=== PATIENT | female | born 1990 | race Caucasian/White ===

== ENCOUNTER 2020-05-02 21:59 | Outpatient (CLI) | payer OTHER | END 2020-05-02 22:00 | disposition critical access hospital (66) | LOC: EMS 21:59 | PROVIDERS: ATTEND Emergency Medicine | DX: L50.9 Urticaria, unspecified (principal); R22.1 Localized swelling, mass and lump, neck; R22.0 Localized swelling, mass and lump, head | CPT/HCPCS: A0425; A0427 ==

== ENCOUNTER 2020-05-02 22:16 | Emergency (ER) | payer OTHER ==
--- NOTE | 2020-05-02 22:25 | ED Physician Documentation ---
History of Present Illness - Stated complaint Stated Complaint: ALLERGIC REACTION - History obtained from History obtained from: Patient, EMS - History of Present Illness Timing: Today Pain level now: 0 Improved by: improved after multiple interventions by EMS (see below) Worsened by: no apparent exacerbating factors; inciting factor might have been related to what she recently ate (see below) - Additonal information Additional information: tonight, patient ate some soup and ice cream. Approximately 5 minutes after this, she developed generalized pruritic hives, dyspnea, sensation of tongue and throat swelling and called 911. She was given 0.3mg epinephrine IM by medics with mild improvement but then a second dose (0.3mg IM) due to continued c/o throat/tongue swelling and reported dyspnea. IV established and she was given 50mg IV diphenhydramine, followed by 125 mg solu-medrol. Her symptoms continued to improve and her vital signs were stable the entire time (including upper 90s- 100% pulse ox on room air, normotensive-hypertensive readings). She was given a third dose of 0.3mg IM epinephrine due to continued c/o sensation of tongue and throat swelling and dyspnea. Review of Systems Constitutional: denies: Fever, Chills, Sweats Throat: reports: Other (sensation of throat and tongue swelling) Cardiac: reports: Reviewed and negative Respiratory: reports: Dyspnea. denies: Cough, Wheezing GI: reports: Reviewed and negative Skin: reports: Rash Musculoskeletal: reports: Reviewed and negative Neurologic: reports: Reviewed and negative PD PAST MEDICAL HISTORY - Past Medical History Past Medical History: No - Present Medications Home Medications: Ambulatory Orders Medication Instructions Recorded Confirmed EPINEPHrine [Epinephrine] 0.3 mg IJ ONCE #2 05/03/20 predniSONE [Deltasone] 40 mg PO DAILY 4 Days #8 tab 05/03/20 - Allergies Allergies/Adverse Reactions: Allergies Allergy/AdvReac Type Severity Reaction Status Date / Time Fish Containing Products Allergy Anaphylaxis Verified 05/02/20 22:28 iodine Allergy Anaphylaxis Verified 05/02/20 22:28 shellfish derived Allergy Anaphylaxis Verified 05/02/20 22:28 - Living Situation Living Arrangement: reports: At home - Social History Does the pt smoke?: No PD ED PE NORMAL - Vitals Vital signs reviewed: Yes - General General: Alert and oriented X 3, No acute distress, Well developed/nourished - HEENT HEENT: Moist mucous membranes, Pharynx benign, Other (airway widely patent; no obvious perioral nor intraoral swelling) - Neck Neck: Supple, no meningeal sign - Cardiac Cardiac: RRR, No murmur - Respiratory Respiratory: No respiratory distress, Clear bilaterally - Abdomen Abdomen: Soft, Non tender - Derm Derm: Normal color, Warm and dry - Extremities Extremities: No edema Results - Vitals Vitals: Vital Signs - 24 hr 05/02/20 05/03/20 22:17 00:46 Temperature 36.6 C Heart Rate 98 100 Respiratory 28 H 18 Rate Blood Pressure 131/88 H 128/78 O2 Saturation 100 100 Oxygen O2 Source Room air - Labs Labs: Laboratory Tests 05/02/20 05/02/20 22:32 22:32 WBC 12.8 H RBC 4.44 Hgb 13.8 Hct 39.6 MCV 89.2 MCH 31.1 H MCHC 34.8 RDW 12.3 Plt Count 273 MPV 9.9 Neut # (Auto) 5.7 Lymph # (Auto) 5.9 H [place] # (Auto) 1.0 Eos # (Auto) 0.2 Baso # (Auto) 0.0 Absolute Nucleated RBC 0.00 Nucleated RBC % 0.0 Manual Slide Review Indicated WBC Morphology NORMAL APPEARANCE Platelet Estimate NORMAL (130-450,000) Platelet Morphology NORMAL APPEARANCE RBC Morph Micro Appear NORMAL APPEARANCE Sodium 138 Potassium 2.6 L Chloride 102 Carbon Dioxide 20 L Anion Gap 16.0 H BUN 13 Creatinine 0.6 Estimated GFR (MDRD) 118 Glucose 154 H Calcium 9.6 - Rads (name of study) chest xray Radiology: Prelim report reviewed, See rad report PD MEDICAL DECISION MAKING - ED course Complexity details: reviewed results, re-evaluated patient, considered differential, d/w patient ED course: patient had significant improvement en route with the medications given and her symptoms did not recur/worsen during ED observation. She had normal/stable vital signs including normal blood pressures and 100% pulse ox on room air. She was in NAD and asymptomatic on reevaluation prior to d/c. Departure - Departure Disposition: 01 Home, Self Care Clinical Impression: Anaphylaxis Condition: Good Instructions: ED Anaphylaxis General Follow-Up: DUSTY Salgadoamelia Talbot [Provider Group] Prescriptions: predniSONE [Deltasone] 40 mg PO DAILY 4 Days #8 tab EPINEPHrine [Epinephrine] 0.3 mg IJ ONCE #2 Comments: I have prescribed a new epi-pen (epinephrine in an auto-injector). Use it if you develop signs/symptoms of anaphylaxis and call 911, even if you feel improved. I have prescribed two of these epi-pens so that you can keep one at home and one at work or in your car. Discharge Date/Time: 05/03/20 00:46
[2020-05-02] MEDS ORDERED: FAMOTIDINE 20 MG/2 ML VIAL IVP STA (22:26)
[2020-05-02 22:41] LABS: BASOPHILS % (AUTO) 0.3 %; EOSINOPHILS # (AUTO) 0.2 10^3/uL (0.0-0.7); EOSINOPHILS % (AUTO) 1.5 %; HGB - HEMOGLOBIN 13.8 g/dL (12.0-16.0); LYMPHOCYTES # (AUTO) 5.9 10^3/uL (1.5-3.5); MEAN CORPUSCULAR HEMOGLOBIN 31.1 pg (27.0-31.0); MEAN CORPUSCULAR HGB CONC 34.8 g/dL (32.0-36.0); MEAN CORPUSCULAR VOLUME 89.2 fL (81.0-99.0); MEAN PLATELET VOLUME 9.9 fL (7.9-10.8); MONOCYTES % (AUTO) 7.4 %; NEUTROPHILS # (AUTO) 5.7 10^3/uL (1.5-6.6); NEUTROPHILS % (AUTO) 44.6 %; PLT - PLATELET COUNT 273 10^3/uL (130-450); RED BLOOD COUNT 4.44 10^6/uL (4.20-5.40); RED CELL DISTRIBUTION WIDTH 12.3 % (12.0-15.0); WHITE BLOOD COUNT 12.8 x10^3/uL (4.8-10.8)
[2020-05-02 22:58] LABS: RBC MORPHOLOGY (MULTIPLE) NORMAL APPEARANCE (NORMAL)
[2020-05-02 22:59] LABS: CALCIUM 9.6 mg/dL (8.5-10.3); CREATININE 0.6 mg/dL (0.4-1.0); PLATELET ESTIMATE, MANUAL NORMAL (130-450,000) (NORMAL); PLATELET MORPHOLOGY NORMAL APPEARANCE (NORMAL)
[2020-05-03 00:48] VITALS: BP 128/78
--- NOTE | 2020-05-03 09:04 | XRAY Report ---
PROCEDURE: Chest 2 View X-Ray INDICATIONS: dyspnea TECHNIQUE: 2 view(s) of the chest. COMPARISON: None. FINDINGS: Surgical changes and devices: None. Lungs and pleura: No pleural effusions or pneumothorax. Small patchy ill-defined opacity of the righ t lower lobe. No focal consolidation. Left lung appears clear. Mediastinum: Mediastinal contours are normal. Heart size is normal. Bones and chest wall: No suspicious bony abnormalities. Soft tissues appear unremarkable. IMPRESSION: Small patchy right lower lobe airspace opacity possibly representing early developing airspace diseas e/pneumonia. No significant discrepancy with initial interpretation by overnight radiologist. Reviewed by: Christiano Bray MD on 05/03/2020 9:02 AM [facility] Approved by: Christiano Bray MD on 05/03/2020 9:02 AM [facility] Station ID: [id number]
== END 2020-05-03 00:46 | disposition home or self-care (01) ==
LOC: ED 22:16
DX: T78.2XXA Anaphylactic shock, unspecified, initial encounter (principal)
CPT/HCPCS: 36415; 80048; 85025; 96374; 99284

== ENCOUNTER 2022-09-15 15:59 | Emergency (ER) | payer OTHER ==
[2022-09-15 16:09] VITALS: BP 124/70
[2022-09-15 16:16] LABS: BILIRUBIN,URINE NEGATIVE (NEGATIVE); GLUCOSE, URINE (UA) NEGATIVE (NEGATIVE); KETONES,URINE (UA) NEGATIVE (NEGATIVE); LEUKOCYTE ESTERASE, URINE SMALL (NEGATIVE); NITRITE,URINE NEGATIVE (NEGATIVE); OCCULT BLOOD,URINE SMALL (NEGATIVE); PROTEIN,URINE NEGATIVE (NEGATIVE); UROBILINOGEN,URINE 0.2 (NORMAL) E.U./dL (NORMAL)
--- NOTE | 2022-09-15 16:21 | ED Physician Documentation ---
History of Present Illness - Stated complaint Stated Complaint: FEMALE - Chief complaint Chief Complaint: General - Additonal information Additional information: 32-year-old female presents emergency department for evaluation of dysuria, urgency and frequency that began yesterday. She is also concerned about a rash that she developed on her mons about a week ago. This followed shaving with a used razor. She describes the rash as pruritic. Nonpainful. Nonvesicular. She reports that she is prone to yeast infections. Review of Systems GI: reports: Reviewed and negative : reports: Dysuria, Frequency Skin: reports: Rash Musculoskeletal: reports: Reviewed and negative PD PAST MEDICAL HISTORY - Past Medical History Cardiovascular: None Respiratory: None Neuro: None Endocrine/Autoimmune: None GI: None VEHICLE TECHNICIAN: None : None HEENT: None Psych: None Musculoskeletal: None Derm: None - Past Surgical History Past Surgical History: Yes Ortho: Other - Present Medications Home Medications: Ambulatory Orders Medication Instructions Recorded Confirmed EPINEPHrine [Epinephrine] 0.3 mg IJ ONCE #2 05/03/20 09/15/22 Fluconazole [Diflucan] 1 tablet PO ONCE 2 Days #2 tablet 09/15/22 Miconazole Nitrate [Dermafungal] 106 gm TP DAILY #106 gm 09/15/22 cephALEXin [Keflex] 500 mg PO BID #14 cap 09/15/22 - Allergies Allergies/Adverse Reactions: Allergies Allergy/AdvReac Type Severity Reaction Status Date / Time Fish Containing Products Allergy Anaphylaxis Verified 10/14/21 23:22 iodine Allergy Anaphylaxis Verified 10/14/21 23:22 shellfish derived Allergy Anaphylaxis Verified 10/14/21 23:22 - Social History Does the pt smoke?: No Smoking Status: Never smoker Does the pt drink ETOH?: Yes Does the pt have substance abuse?: No - Immunizations Immunizations are current?: Yes - POLST Patient has POLST: No PD ED PE NORMAL - General General: Alert and oriented X 3, No acute distress - Cardiac Cardiac: RRR, No murmur - Respiratory Respiratory: Clear bilaterally - Abdomen Abdomen: Normal bowel sounds, Soft, Non tender, Non distended - Female Female : Escalator Mechanic present, Other (Well demarcated annular scaling rash on the mons with centralized clearing. No fluctuance or tenderness noted. Nonvesicular.) Results - Vitals Vitals: Vital Signs - 24 hr 09/15/22 16:01 Temperature 36.4 C L Heart Rate 69 Respiratory 16 Rate Blood Pressure 124/70 O2 Saturation 99 Oxygen O2 Source Room air PD Medical Decision Making - ED course Complexity details: reviewed results, d/w patient ED course: 32-year-old female presents emergency department for 24 hours of dysuria urgency and frequency. Symptoms are consistent with urinary tract infection. Urinalysis today AIs consistent with acute cystitis for this prescription for Keflex will be sent to the pharmacy. Clinically the patient has no secondary findings or exam findings to suggest a sending infection/pyelonephritis. Patient is also reporting a rash that has been on her mons region for about a week after using a razor. It is a pruritic well demarcated annular rash with centralized clearing most resembling a tinea or fungal infection. She reports she has had history of yeast infections in the past. Clinically I am suspicious for tinea cruris. For this I will prescribe fluconazole tablet 1 taken now and an additional in 72 hours time. I am also making the recommendation for the patient to apply miconazole nitrate cream to this rash every day for the next 2 to 3 weeks. She is advised to avoid shaving until the rash fully clears. Departure - Departure Disposition: Home, Self Care Clinical Impression: Tinea cruris Acute cystitis Qualifiers: Hematuria presence: without hematuria Qualified Code(s): N30.00 - Acute cystitis without hematuria Condition: Stable Record reviewed to determine appropriate education?: Yes Instructions: ED Tinea Cruris General, Miconazole skin cream Prescriptions: Miconazole Nitrate [Dermafungal] 106 gm TP DAILY #106 gm Fluconazole [Diflucan] 1 tablet PO ONCE 2 Days #2 tablet cephALEXin [Keflex] 500 mg PO BID #14 cap Comments: As discussed at the bedside you do have a urinary tract infection. For this we will start you on Keflex which she will take twice daily for the next week. The rash in your mons area is a fungal infection called tinea cruris. I would like you to take the fluconazole today and then again in 3 days but the more important treatment is applying the miconazole nitrate cream to this region every day for at least 3 weeks. You will need to continue to apply it for at least 1 week after the rash fully dissipates. Return to the ER if you are having new or worsening symptoms
[2022-09-15 16:22] LABS: CLARITY,URINE HAZY (CLEAR); HCG UR QUAL NEGATIVE
[2022-09-15 16:31] LABS: BACTERIA,URINE Few /HPF (None Seen); RBC,URINE 0-5 /HPF (0-5); SQUAMOUS EPITHELIAL CELL,UR FEW Squamous (<= Few)
== END 2022-09-15 16:58 | disposition home or self-care (01) ==
LOC: ED 15:59
DX: B35.6 Tinea cruris (principal); N30.00 Acute cystitis without hematuria
CPT/HCPCS: 81001; 81003; 81025; 87086; 99283

== ENCOUNTER 2022-12-20 15:51 | Outpatient (CLI) | payer OTHER ==
--- NOTE | 2022-12-21 12:07 | MRI Report ---
PROCEDURE: WRIST W/WO - LT INDICATIONS: GANGLION CONTRAST: CLARISCAN 16.8 ML TECHNIQUE: Noncontrast coronal proton density fast spin echo and T2 fast spin echo with fat saturation; coronal 3-D gradient echo, axial T1 spin echo and T2 fast spin echo with fat saturation, axial T1 spin echo w ith fat saturation, sagittal T1 spin echo through the wrist. Post-contrast axial, coronal, and sagit darrius T1 spin echo with fat saturation through the wrist. COMPARISON: None. FINDINGS: Image quality: Excellent. Bones and cartilage: No suspicious osseous enhancement. The carpal bones are normally aligned. No bone marrow contusions or fractures. No evidence for avascular necrosis. Minimal degenerative spurr ing of the base of the first metacarpal. Carpal ligaments: The scapholunate and lunotriquetral ligaments appear intact. On sagittal images, the pisohamate ligament appears intact. Triangular fibrocartilage complex: The triangular fibrocartilage appears intact. Tendons and soft tissues: No suspicious soft tissue enhancement. The carpal tunnel structures appea r normal, including the median nerve. The ulnar nerve appears normal within Guyon's canal. Mild exte nsor carpi ulnaris tendinosis. The remaining extensor tendon compartments demonstrate normal morpholo gy, without pathologic tendon sheath fluid. A definite cyst is seen at the volar radial aspect of the radiocarpal joint measuring 18 x 9 x 13 mm. Postcontrast images demonstrate a thin peripheral rim of enhancement without solid enhancing components. No solid soft tissue mass is seen. IMPRESSION: 1.Ganglion cyst adjacent to the volar radial aspect of the radiocarpal joint measures up to 18 mm. 2.Mild extensor carpi ulnaris tendinosis. Reviewed by: Geoffrey Gilman MD on 12/21/2022 12:06 PM PDT Approved by: Geoffrey Gilman MD on 12/21/2022 12:06 PM PDT Station ID: [id number]
== END 2022-12-20 15:52 | disposition home or self-care (01) ==
LOC: DI 15:51
DX: M67.432 Ganglion, left wrist (principal); M67.932 Unspecified disorder of synovium and tendon, left forearm
CPT/HCPCS: 73223; A9575

== ENCOUNTER 2023-01-26 12:15 | Outpatient (CLI) | payer OTHER | END 2023-01-26 12:30 | disposition home or self-care (01) | LOC: LAB.N 12:15 | PROVIDERS: ATTEND Family Medicine | DX: N39.0 Urinary tract infection, site not specified (principal) | CPT/HCPCS: 87086 ==

== ENCOUNTER 2023-02-02 08:00 | Outpatient (CLI) | payer OTHER ==
[2023-02-02 22:26] LABS: BACTERIAL VAGINOSIS DNA NEGATIVE (NEGATIVE); CANDIDA GLABRATA DNA NEGATIVE (NEGATIVE); CANDIDA GROUP DNA NEGATIVE (NEGATIVE); CANDIDA KRUSEI DNA NEGATIVE (NEGATIVE); TRICHOMONAS VAGINALIS DNA NEGATIVE (NEGATIVE)
== END 2023-02-02 23:59 | disposition home or self-care (01) ==
LOC: LAB.N 08:00
PROVIDERS: ATTEND Physician Assistant Medical
DX: L29.8 Other pruritus (principal)
CPT/HCPCS: 81514

== ENCOUNTER 2023-02-08 19:12 | Outpatient (CLI) | payer OTHER ==
--- NOTE | 2023-02-10 17:37 | Ultrasound Report ---
PROCEDURE: Pelvic w/Transvaginal INDICATIONS: OVARIAN CYST TECHNIQUE: Real-time scanning was performed of the pelvic organs, with image documentation. Additional endovagi nal scanning was necessary due to incomplete visualization of the adnexal and endometrial structures by transabdominal scanning. COMPARISON: None. FINDINGS: Uterus: Uterus is anteverted and normal in size at 6.9 x 3.3 x 4.4 cm. The myometrium is homogeneou s. The endometrium measures 6.6 mm in combined thickness. Ovaries: The right ovary measures 3.6 x 1.9 x 2.9 cm, with a calculated ovarian volume of 10.4 cc. The left ovary measures 4.2 x 2.5 x 3.1 cm, with a calculated ovarian volume of 16.3 cc. The ovaries have a normal sonographic appearance. Follicular cysts are present within the bilateral ovaries. Les s than 12 follicles can be seen in each ovary. No adnexal masses are seen. No cystic lesions measuri ng greater than 3 cm. Other: No pathologic free abdominal or pelvic fluid. IMPRESSION: Unremarkable pelvic ultrasound. Reviewed by: Starr Mcdowell MD on 02/10/2023 5:35 PM PST Approved by: Starr Mcdowell MD on 02/10/2023 5:35 PM PST Station ID: [id number]
== END 2023-02-08 19:13 | disposition home or self-care (01) ==
LOC: DI 19:12
PROVIDERS: ATTEND Physician Assistant Medical
DX: Z87.42 Personal history of other diseases of the female genital tract (principal)

== ENCOUNTER 2023-08-14 11:02 | Emergency (ER) | payer OTHER ==
--- NOTE | 2023-08-14 11:29 | ED Physician Documentation ---
PD HPI DYSPNEA - Stated complaint Stated Complaint: ANXIETY - Additional information Additional information: 32-year-old female with no pertinent past medical history presents emergency department for sudden onset shortness of breath. Patient says that her has been experiencing upper respiratory infection symptoms now for about the last week she started to feel ill and weak yesterday today she went to the clinic to go get evaluated because she is starting to have some chills, flushing, generalized malaise on her way to the clinic she started to experience sudden onset shortness of breath and episode of chest pain which caused her to collapse she started become tearful she called 911 for further evaluation. She says that she is having hard time differentiate the symptoms between possible anxiety versus panic attack or if there is something else going on. She also reports that she just recently started taking . PD PAST MEDICAL HISTORY - Past Medical History Cardiovascular: None Respiratory: None Neuro: None Endocrine/Autoimmune: None GI: None MISSION COORDINATOR: None : None HEENT: None Psych: None Musculoskeletal: None Derm: None - Past Surgical History Past Surgical History: Yes Ortho: Other - Present Medications Home Medications: Ambulatory Orders Medication Instructions Recorded Confirmed EPINEPHrine [Epinephrine] 0.3 mg IJ ONCE #2 05/03/20 09/15/22 Fluconazole [Diflucan] 1 tablet PO ONCE 2 Days #2 tablet 09/15/22 Miconazole Nitrate [Dermafungal] 106 gm TP DAILY #106 gm 09/15/22 cephALEXin [Keflex] 500 mg PO BID #14 cap 09/15/22 Ondansetron Odt [Zofran Odt] 4 mg TL Q6H PRN #10 tablet 08/14/23 hydrOXYzine PAMOATE [Vistaril] 25 mg PO Q6H PRN #20 cap 08/14/23 - Allergies Allergies/Adverse Reactions: Allergies Allergy/AdvReac Type Severity Reaction Status Date / Time Fish Containing Products Allergy Anaphylaxis Verified 08/14/23 11:28 iodine Allergy Anaphylaxis Verified 08/14/23 11:28 shellfish derived Allergy Anaphylaxis Verified 08/14/23 11:28 - Social History Does the pt smoke?: No Smoking Status: Never smoker Does the pt drink ETOH?: Yes Does the pt have substance abuse?: No - Immunizations Immunizations are current?: Yes - POLST Patient has POLST: No PD ED PE NORMAL - Vitals Vital signs reviewed: Yes - General General: Alert and oriented X 3, No acute distress, Well developed/nourished - HEENT HEENT: Atraumatic, PERRL - Neck Neck: No JVD - Cardiac Cardiac: RRR, No murmur, No gallop, Strong equal pulses - Respiratory Respiratory: No respiratory distress, Clear bilaterally - Abdomen Abdomen: Normal bowel sounds, Soft, Non tender, Non distended, No organomegaly Results - Vitals Vitals: Vital Signs - 24 hr 08/14/23 08/14/23 08/14/23 11:21 12:09 12:46 Temperature 36.8 C 36.3 C L Heart Rate 74 82 65 Respiratory 15 20 18 Rate Blood Pressure 149/92 H 130/74 129/83 H O2 Saturation 100 100 100 Oxygen O2 Source Room air - EKG (time done) 1151 EKG releavant findings:: EKG personally interpreted by author of this note. Relevant findings are: Rate: Rate (enter#) (69) Rhythm: NSR [place]: Normal Intervals: Normal [place] QRS: Normal Ischemia: Normal ST segments Computer interpretation: Agree with computer - Labs Labs: Laboratory Tests 08/14/23 08/14/23 08/14/23 11:17 11:37 11:37 WBC 7.7 RBC 4.29 Hgb 13.2 Hct 38.0 MCV 88.6 MCH 30.8 MCHC 34.7 RDW 12.4 Plt Count 245 MPV 9.7 Neut # (Auto) 5.0 Lymph # (Auto) 2.1 [place] # (Auto) 0.5 Eos # (Auto) 0.1 Baso # (Auto) 0.0 Absolute Nucleated RBC 0.00 Nucleated RBC % 0.0 Sodium 136 Potassium 3.8 Chloride 106 Carbon Dioxide 22 Anion Gap 8.0 BUN 11 Creatinine 0.7 Estimated GFR (MDRD) 97 Glucose 115 H Calcium 9.6 Magnesium 1.7 Total Bilirubin 0.5 AST 15 ALT 13 Alkaline Phosphatase 43 Troponin I High Sens Total Protein 6.6 Albumin 4.3 Globulin 2.3 Albumin/Globulin Ratio 1.9 Lipase 13 Serum HCG, Qual NEGATIVE Nasal Adenovirus (PCR) Nasal B. parapertussis DNA (PCR) Nasal Coronavir 229E PCR Nasal Coronavir HKU1 PCR Nasal Coronavir NL63 PCR Nasal Coronavir OC43 PCR Nasal Enterovir/Rhinovir PCR Nasal Influenza B PCR Nasal Influenza A PCR Nasal Parainfluen 1 PCR Nasal Parainfluen 2 PCR Nasal Parainfluen 3 PCR Nasal Parainfluen 4 PCR Nasal RSV (PCR) Nasal B.pertussis DNA PCR Nasal C.pneumoniae (PCR) Hever Human Metapneumo PCR Nasal M.pneumoniae (PCR) Nasal SARS-CoV-2 (PCR) 08/14/23 08/14/23 11:37 12:21 WBC RBC Hgb Hct MCV MCH MCHC RDW Plt Count MPV Neut # (Auto) Lymph # (Auto) [place] # (Auto) Eos # (Auto) Baso # (Auto) Absolute Nucleated RBC Nucleated RBC % Sodium Potassium Chloride Carbon Dioxide Anion Gap BUN Creatinine Estimated GFR (MDRD) Glucose Calcium Magnesium Total Bilirubin AST ALT Alkaline Phosphatase Troponin I High Sens < 2.3 L Total Protein Albumin Globulin Albumin/Globulin Ratio Lipase Serum HCG, Qual Nasal Adenovirus (PCR) NOT DETECTED Nasal B. parapertussis DNA (PCR) NOT DETECTED Nasal Coronavir 229E PCR NOT DETECTED Nasal Coronavir HKU1 PCR NOT DETECTED Nasal Coronavir NL63 PCR NOT DETECTED Nasal Coronavir OC43 PCR NOT DETECTED Nasal Enterovir/Rhinovir PCR NOT DETECTED Nasal Influenza B PCR NOT DETECTED Nasal Influenza A PCR NOT DETECTED Nasal Parainfluen 1 PCR NOT DETECTED Nasal Parainfluen 2 PCR NOT DETECTED Nasal Parainfluen 3 PCR NOT DETECTED Nasal Parainfluen 4 PCR NOT DETECTED Nasal RSV (PCR) NOT DETECTED Nasal B.pertussis DNA PCR NOT DETECTED Nasal C.pneumoniae (PCR) NOT DETECTED [place] Human Metapneumo PCR NOT DETECTED Nasal M.pneumoniae (PCR) NOT DETECTED Nasal SARS-CoV-2 (PCR) NOT DETECTED PD Medical Decision Making - ED course ED course: 32-year-old female presents emergency department for episode of shortness of breath that has now fully resolved. Patient says that she has been experiencing an extreme amount of anxiety lately a lot of at home and at work stressors she went into the walk-in clinic to get evaluated but because of her symptoms she ended up calling 911 because she felt like she was having a hard time with them. Now her shortness of breath has now fully resolved. She says that this feels very similar to panic attacks that she has had in the past. Very unlikely that this is ACS related troponins are negative normal EKG. Respiratory swab was complete for further evaluation as patient said that she is feeling generalized malaise and unwell this is also found to be negative. She is not she has no other electrolyte abnormalities no anemia no leukocytosis. Patient said that she felt significant improvement in symptoms after hydroxyzine and Zofran these medications were sent to her preferred pharmacy to help with her lingering nausea that she was experiencing as well as hydroxyzine to help with her anxiety. Patient has a therapist she denies any homicidal suicidal ideation believe any further workup is indicated she is safe for discharge at this time her will be driving her home. Departure - Departure Disposition: , Self Care Clinical Impression: Anxiety Instructions: ED Panic Attack Prescriptions: hydrOXYzine PAMOATE [Vistaril] 25 mg PO Q6H PRN #20 cap PRN Reason: Anxiety Ondansetron Odt [Zofran Odt] 4 mg TL Q6H PRN #10 tablet PRN Reason: Nausea / Vomiting Comments: Thank you for trusting us with your care. I believe that you are experiencing an anxiety attack we do have a respiratory swab pending we will call you with what the results are. I sent a prescription of Zofran and hydroxyzine to help with your nausea and anxiety at home. Please come back to the ER if you are noticing any worsening chest pain or other worsening emergency symptoms. Wishing a speedy recovery. Forms: PCP List Discharge Date/Time: 08/14/23 12:46
[2023-08-14 11:31] VITALS: O2SAT 100
[2023-08-14 11:52] LABS: BASOPHILS % (AUTO) 0.4 %; EOSINOPHILS # (AUTO) 0.1 10^3/uL (0.0-0.7); EOSINOPHILS % (AUTO) 0.8 %; HGB - HEMOGLOBIN 13.2 g/dL (12.0-16.0); LYMPHOCYTES # (AUTO) 2.1 10^3/uL (1.5-3.5); LYMPHOCYTES % (AUTO) 26.8 %; MEAN CORPUSCULAR HEMOGLOBIN 30.8 pg (27.0-31.0); MEAN CORPUSCULAR HGB CONC 34.7 g/dL (32.0-36.0); MEAN CORPUSCULAR VOLUME 88.6 fL (81.0-99.0); MEAN PLATELET VOLUME 9.7 fL (7.9-10.8); MONOCYTES # (AUTO) 0.5 10^3/uL (0.0-1.0); NEUTROPHILS % (AUTO) 64.7 %; PLT - PLATELET COUNT 245 10^3/uL (130-450); RED BLOOD COUNT 4.29 10^6/uL (4.20-5.40); RED CELL DISTRIBUTION WIDTH 12.4 % (12.0-15.0); WHITE BLOOD COUNT 7.7 x10^3/uL (4.8-10.8)
[2023-08-14] MEDS: hydrOXYzine PAMOATE 25 MG CAPSULE PO STA (12:13)
[2023-08-14] MEDS: ONDANSETRON ODT 4 MG TABLET TL STA (12:13)
[2023-08-14] MEDS: SODIUM CHLORIDE 0.9% 1,000 ML IV ONE (12:14)
[2023-08-14 12:15] LABS: HCG,QUALITATIVE BLOOD NEGATIVE
[2023-08-14 12:21] LABS: MAGNESIUM 1.7 mg/dL (1.7-2.3)
[2023-08-14 12:27] LABS: ALBUMIN 4.3 g/dL (3.2-5.5); ALBUMIN/GLOBULIN RATIO 1.9 (1.0-2.2); BILIRUBIN,TOTAL 0.5 mg/dL (0.2-1.0); CALCIUM 9.6 mg/dL (8.5-10.3); CREATININE 0.7 mg/dL (0.6-1.3); POTASSIUM 3.8 mmol/L (3.5-4.5); TOTAL PROTEIN 6.6 g/dL (6.4-8.9)
[2023-08-14 12:54] VITALS: BP 129/83
[2023-08-14 13:20] LABS: B. PARAPERTUSSIS- RESP PCR PAN NOT DETECTED; B. PERTUSSIS- RESP PCR PANEL NOT DETECTED; C. PNEUMONIAE- RESP PCR PANEL NOT DETECTED; CORONAVIRUS 229E-RESP PCR NOT DETECTED; CORONAVIRUS HKU1-RESP PCR NOT DETECTED; CORONAVIRUS NL63-RESP PCR NOT DETECTED; CORONAVIRUS OC43-RESP PCR NOT DETECTED; HUMAN METAPNEUMOVIRUS NOT DETECTED; INFLUENZA A- RESP PCR PANEL NOT DETECTED; INFLUENZA B - RESP PCR PANEL NOT DETECTED; M. PNEUMONIAE- RESP PCR PANEL NOT DETECTED; PARAINFLUENZA VIRUS 1 NOT DETECTED; PARAINFLUENZA VIRUS 2 NOT DETECTED; PARAINFLUENZA VIRUS 3 NOT DETECTED; PARAINFLUENZA VIRUS 4 NOT DETECTED; RHINOVIRUS/ENTEROVIRUS NOT DETECTED; RSV- RESP PCR PANEL NOT DETECTED; SARS-CoV-2 -RESP PCR PANEL NOT DETECTED
== END 2023-08-14 12:46 | disposition home or self-care (01) ==
LOC: EDUNIT# → ED 11:02
DX: F41.9 Anxiety disorder, unspecified (principal)
CPT/HCPCS: 36415; 80053; 83690; 83735; 84484; 84703; 85025; 87633; 93005; 99284; A9270; Q0162; 85379

== ENCOUNTER 2023-11-24 17:36 | Emergency (ER) | payer OTHER ==
[2023-11-24 18:10] LABS: BASOPHILS % (AUTO) 0.3 %; EOSINOPHILS # (AUTO) 0.1 10^3/uL (0.0-0.7); EOSINOPHILS % (AUTO) 1.2 %; HCT - HEMATOCRIT 38.6 % (37.0-47.0); LYMPHOCYTES # (AUTO) 2.8 10^3/uL (1.5-3.5); LYMPHOCYTES % (AUTO) 30.6 %; MEAN CORPUSCULAR HEMOGLOBIN 30.2 pg (27.0-31.0); MEAN CORPUSCULAR HGB CONC 33.7 g/dL (32.0-36.0); MEAN CORPUSCULAR VOLUME 89.6 fL (81.0-99.0); MEAN PLATELET VOLUME 9.7 fL (7.9-10.8); MONOCYTES # (AUTO) 0.7 10^3/uL (0.0-1.0); MONOCYTES % (AUTO) 7.3 %; NEUTROPHILS # (AUTO) 5.6 10^3/uL (1.5-6.6); NEUTROPHILS % (AUTO) 60.5 %; PLT - PLATELET COUNT 257 10^3/uL (130-450); RED BLOOD COUNT 4.31 10^6/uL (4.20-5.40); RED CELL DISTRIBUTION WIDTH 12.1 % (12.0-15.0); WHITE BLOOD COUNT 9.2 x10^3/uL (4.8-10.8)
[2023-11-24 18:24] LABS: ALBUMIN 4.1 g/dL (3.2-5.5); ALBUMIN/GLOBULIN RATIO 1.5 (1.0-2.2); BILIRUBIN,TOTAL 0.3 mg/dL (0.2-1.0); CALCIUM 9.5 mg/dL (8.5-10.3); CREATININE 0.6 mg/dL (0.6-1.3); POTASSIUM 3.6 mmol/L (3.5-4.5); TOTAL PROTEIN 6.9 g/dL (6.4-8.9)
[2023-11-24 18:26] LABS: BILIRUBIN,URINE NEGATIVE (NEGATIVE); GLUCOSE, URINE (UA) NEGATIVE (NEGATIVE); KETONES,URINE (UA) NEGATIVE (NEGATIVE); LEUKOCYTE ESTERASE, URINE NEGATIVE (NEGATIVE); NITRITE,URINE NEGATIVE (NEGATIVE); OCCULT BLOOD,URINE MODERATE (NEGATIVE); PH,URINE 7.5 PH (5.0-7.5); PROTEIN,URINE NEGATIVE (NEGATIVE); UROBILINOGEN,URINE 0.2 (NORMAL) E.U./dL (NORMAL)
[2023-11-24 18:35] LABS: CLARITY,URINE CLOUDY (CLEAR); HCG UR QUAL NEGATIVE
[2023-11-24 18:36] LABS: AMORPHOUS SEDIMENT,UR Moderate /LPF; BACTERIA,URINE Rare /HPF (None Seen); RBC,URINE 0-5 /HPF (0-5); SQUAMOUS EPITHELIAL CELL,UR MOD Squamous (<= Few); WBC,URINE 0-3 /HPF (0-5)
--- NOTE | 2023-11-24 18:57 | ED Physician Documentation ---
PD HPI ABD PAIN - Stated complaint Stated Complaint: N/V/ - Chief complaint Chief Complaint: Abd Pain - History obtained from History obtained from: Patient - Additional information Additional information: 33-year-old female presents with nausea and vomiting which started today including approximately 5 episodes of nonbilious vomiting. She also states that several days ago she had some diarrhea and then she took some Pepto-Bismol and today she feels mildly constipated and has had some dark stools. She is still passing stool and gas. She also feels some mild urinary symptoms stating that she feels like she should be voiding more than she is and that it sometimes feels like she has to void but cannot. She has not had any dysuria. She has a history of a cholecystectomy in January 2023 and states her family was visiting the last several days and she ate a lot of fattier foods and other foods that she does not typically eat which likely resulted in the diarrhea. She has not had a fever, no chest pain or difficulty breathing, no focal abdominal pain, and denies any international travel (other than to [place] for one day recently) or unusual foods or water sources. No one else in the household is sick. PD PAST MEDICAL HISTORY - Past Medical History Past Medical History: Yes Cardiovascular: None Respiratory: None Neuro: None Endocrine/Autoimmune: None GI: None [employer]ENTICE: None : None HEENT: None Psych: None Musculoskeletal: None Derm: None - Past Surgical History Past Surgical History: Yes General: Cholecystectomy Ortho: Other - Present Medications Home Medications: Ambulatory Orders Medication Instructions Recorded Confirmed EPINEPHrine [Epinephrine] 0.3 mg IJ ONCE #2 05/03/20 09/15/22 Fluconazole [Diflucan] 1 tablet PO ONCE 2 Days #2 tablet 09/15/22 Miconazole Nitrate [Dermafungal] 106 gm TP DAILY #106 gm 09/15/22 cephALEXin [Keflex] 500 mg PO BID #14 cap 09/15/22 Ondansetron Odt [Zofran Odt] 4 mg TL Q6H PRN #10 tablet 08/14/23 hydrOXYzine PAMOATE [Vistaril] 25 mg PO Q6H PRN #20 cap 08/14/23 - Allergies Allergies/Adverse Reactions: Allergies Allergy/AdvReac Type Severity Reaction Status Date / Time Fish Containing Products Allergy Anaphylaxis Verified 11/24/23 17:49 iodine Allergy Anaphylaxis Verified 11/24/23 17:49 shellfish derived Allergy Anaphylaxis Verified 11/24/23 17:49 - Social History Does the pt smoke?: No Smoking Status: Never smoker Does the pt drink ETOH?: Yes ETOH Use: Wine, Beer, Liquor Does the pt have substance abuse?: No - Immunizations Immunizations are current?: Yes - POLST Patient has POLST: No PD ED PE NORMAL - Vitals Vital signs reviewed: Yes - General General: Alert and oriented X 3, No acute distress, Well developed/nourished - HEENT HEENT: Atraumatic, Moist mucous membranes - Cardiac Cardiac: RRR, No murmur - Respiratory Respiratory: No respiratory distress, Clear bilaterally - Abdomen Abdomen: Normal bowel sounds, Soft, Non tender, Non distended, No organomegaly - Back Back: No CVA TTP, No spinal TTP - Derm Derm: Normal color, Warm and dry, No rash Results - Vitals Vitals: Vital Signs - 24 hr 11/24/23 17:42 Temperature 36.6 C Heart Rate 76 Respiratory 18 Rate Blood Pressure 133/82 H O2 Saturation 97 Oxygen O2 Source Room air - Labs Labs: Laboratory Tests 11/24/23 11/24/23 11/24/23 17:50 18:06 18:06 WBC 9.2 RBC 4.31 Hgb 13.0 Hct 38.6 MCV 89.6 MCH 30.2 MCHC 33.7 RDW 12.1 Plt Count 257 MPV 9.7 Neut # (Auto) 5.6 Lymph # (Auto) 2.8 [place] # (Auto) 0.7 Eos # (Auto) 0.1 Baso # (Auto) 0.0 Absolute Nucleated RBC 0.00 Nucleated RBC % 0.0 Sodium 137 Potassium 3.6 Chloride 104 Carbon Dioxide 26 Anion Gap 7.0 BUN 7 Creatinine 0.6 Estimated GFR (MDRD) 115 Glucose 93 Calcium 9.5 Total Bilirubin 0.3 AST 16 ALT 21 Alkaline Phosphatase 44 Total Protein 6.9 Albumin 4.1 Globulin 2.8 Albumin/Globulin Ratio 1.5 Lipase 24 Urine Color YELLOW Urine Clarity CLOUDY Urine pH 7.5 Ur Specific [place] 1.015 Urine Protein NEGATIVE Urine Glucose (UA) NEGATIVE Urine Ketones NEGATIVE Urine Occult Blood MODERATE H Urine Nitrite NEGATIVE Urine Bilirubin NEGATIVE Urine Urobilinogen 0.2 (NORMAL) Ur Leukocyte Esterase NEGATIVE Urine RBC 0-5 Urine WBC 0-3 Ur Squamous Epith Cells MOD Squamous H Amorphous Sediment Moderate Urine Bacteria Rare Ur Microscopic Review INDICATED Urine Culture Comments NOT INDICATED Urine HCG, Qual NEGATIVE PD Medical Decision Making - ED course Complexity details: reviewed results, re-evaluated patient, considered differential, d/w patient ED course: 33-year-old female presented with a number of different concerns including diarrhea several days ago now constipation and dark stool, as well as urinary symptoms. She is well-appearing here on physical exam, afebrile nontoxic in no acute distress. Her physical exam is unremarkable there is no focal abdominal pain or peritoneal signs. I considered viral gastroenteritis, GI bleed, urinary tract infection,Appendicitis, colitis, diverticulitis, among other differentials including the usual differentials for abdominal pain. Given her reassuring physical exam and lab work however I think this is likely a mild a viral gastro and that patient did eat more fatty foods than typical with a recent cholecystectomy and this resulted in diarrhea for which the patient took Pepto-Bismol resulting in her darker stools and mild constipation today. She does not have any signs of UTI and it is a few days away from starting her menstrual period like resulting in some of her symptoms today. Provided reassurance to the patient, recommended she avoid taking the Pepto, return to her regular low-fat diet, stay well-hydrated, and I have given her Zofran as needed. I discussed return precautions if any new or worsening symptoms. Departure - Departure Disposition: 01 Home, Self Care Clinical Impression: Vomiting Qualifiers: Vomiting type: unspecified Nausea presence: with nausea Qualified Code(s): R11.2 - Nausea with vomiting, unspecified Condition: Good Instructions: ED Nausea Vomiting Comments: Your Labs today are reassuring, you do not have any signs of urinary tract infection or other findings on your blood work. I think you likely developed dark stool and because you took Pepto-Bismol for your diarrhea which then resulted in some constipation. Please avoid taking the Pepto, and stay well- hydrated. Anticipate improvement in your symptoms in next few days. I have given you some nausea medication to use if needed. If you develop a fever or worsening symptoms, do not hesitate to return to the ER. Forms: PCP List
[2023-11-24] MEDS: ONDANSETRON 4 MG/2 ML VIAL IVP STA (19:19)
[2023-11-24] MEDS: ONDANSETRON ODT 4 MG Prepack 2 TL PRN (19:19)
[2023-11-24 19:45] VITALS: BP 130/83; O2SAT 99
== END 2023-11-24 19:35 | disposition home or self-care (01) ==
LOC: ED 17:36
DX: R11.2 Nausea with vomiting, unspecified (principal); R19.7 Diarrhea, unspecified
CPT/HCPCS: 36415; 80053; 81001; 81025; 83690; 85025; 96374; 99283; A9270; 81003; 87086